=== PATIENT | male | born 1990 | race Caucasian/White ===

== ENCOUNTER 2020-10-17 14:33 | Outpatient (CLI) | payer OTHER ==
--- NOTE | 2020-10-17 16:28 | MRI Report ---
PROCEDURE: Knee LT W/O INDICATIONS: KNEE INSTABILITY TECHNIQUE: Noncontrast sagittal PD fast spin echo and T2 fast spin echo with fat saturation, sagittal 3-D gradie nt sequence with fat saturation; coronal T1 spin echo and PD fast spin echo with fat saturation, and axial PD fast spin echo with fat saturation through the knee. COMPARISON: None. FINDINGS: Image quality: Excellent. Menisci: The medial and lateral menisci demonstrate normal morphology and internal signal. The meni scal root ligaments appear intact. Cruciate ligaments: The anterior and posterior cruciate ligaments appear intact. Medial structures: The medial collateral ligament appears intact. Visualized portions of the pes ans erinus tendons appear normal. No abnormal bursal fluid. Lateral structures: The lateral collateral ligament, long and short heads of the biceps femoris tend on appear intact. The popliteus tendon appears normal. Iliotibial band appears normal. Anterior structures: The quadriceps and patellar tendons appear intact. Patellar alignment is tommy l. No femoral trochlear dysplasia or ventral trochlear prominence. No edema in the infrapatellar fa t pad. Bones and cartilage: No bone marrow contusions or fractures. The cartilage of the medial and latera l femorotibial compartments, as well as the patellofemoral compartment, appears normal in thickness. Joint space: There is physiologic knee joint fluid. No Winter?s cyst. Normal appearing synovial pli are incidentally noted. IMPRESSION: 1. No internal derangement. 2. No explanation for instability. Reviewed by: Emiliano Lua MD on 10/17/2020 4:27 PM PDT Approved by: Emiliano Lua MD on 10/17/2020 4:27 PM PDT Station ID: [id number]
== END 2020-10-17 14:34 | disposition home or self-care (01) ==
LOC: DI 14:33
PROVIDERS: ATTEND Nurse Practitioner Family
DX: M25.362 Other instability, left knee (principal)

== ENCOUNTER 2021-01-11 08:00 | Outpatient (CLI) | payer OTHER | END 2021-01-11 23:59 | disposition home or self-care (01) | LOC: LAB.N 08:00 | PROVIDERS: ATTEND Nurse Practitioner | DX: R05.9 Cough, unspecified (principal); Z20.822 Contact with and (suspected) exposure to COVID-19 ==

== ENCOUNTER 2021-01-17 09:21 | Outpatient (CLI) | payer OTHER ==
--- NOTE | 2021-01-17 10:20 | XRAY Report ---
PROCEDURE: Knee 4 View RT INDICATIONS: RIGHT KNEE PAIN TECHNIQUE: 3 views of the right knee(s) were acquired. AP weightbearing view of both knees was also submitted. COMPARISON: None. FINDINGS: BONES/JOINT: No acute, displaced fracture or dislocation. Trace suprapatellar joint effusion. The abbey nt spaces are maintained. SOFT TISSUES: No significant abnormality. IMPRESSION: 1.No acute osseous abnormality. Reviewed by: Freddie Olguin MD on 01/17/2021 10:19 AM PDT Approved by: Freddie Olguin MD on 01/17/2021 10:19 AM PDT Station ID: [id number]
== END 2021-01-17 09:22 ==
LOC: DI.N 09:21
PROVIDERS: ATTEND Physician Assistant
DX: M25.561 Pain in right knee (principal)

== ENCOUNTER 2021-02-20 19:42 | Emergency (ER) | payer OTHER ==
[2021-02-20] MEDS ORDERED: KETOROLAC 60 MG/2 ML VIAL IM STA (20:07)
[2021-02-20] MEDS ORDERED: HYDROcod/ACET 5/325 Prepack 4 PO STA (20:07)
[2021-02-20] MEDS ORDERED: HYDROmorphone 1 MG/ML CARPUJECT IM STA (20:07)
--- NOTE | 2021-02-20 20:09 | ED Physician Documentation ---
PD HPI BACK PAIN - Stated complaint Stated Complaint: TAIL BONE PX - Chief complaint Chief Complaint: Back Pain - History obtained from History obtained from: Patient - Additional information Additional information: 30-year-old gentleman with history of knee problems and allergies but generally healthy was playing with his son earlier today. He was down on the floor on all fours and got up and suddenly felt a severe low back pain. It is in the area of the lower lumbar spine/upper sacrum. It otherwise radiates a bit to the side but no further. No radiation down the legs. No weakness, numbness, tingling, saddle anesthesia, fevers, history of back problems, IV drug use. Review of Systems Constitutional: reports: Reviewed and negative Eyes: reports: Reviewed and negative Ears: reports: Reviewed and negative Respiratory: reports: Reviewed and negative PD PAST MEDICAL HISTORY - Past Medical History Past Medical History: Yes Other Past Medical History: Seasonal Allergies - Past Surgical History Past Surgical History: No - Present Medications Home Medications: Ambulatory Orders Medication Instructions Recorded Confirmed Cyclobenzaprine [Flexeril] 10 mg PO TID PRN #20 tablet 02/20/21 Fluticasone [Flonase] 1 ESTEFANÍA DAILY 02/20/21 Ibuprofen [Motrin] 800 mg PO Q8H PRN #30 tablet 02/20/21 Lidocaine Patch 5% [Lidoderm Patch] 1 applic TOP DAILY 02/20/21 02/20/21 - Allergies Allergies/Adverse Reactions: Allergies Allergy/AdvReac Type Severity Reaction Status Date / Time No Known Drug Allergies Allergy Verified 02/20/21 19:44 - Social History Does the pt smoke?: No Smoking Status: Never smoker - Immunizations Immunizations are current?: Yes - POLST Patient has POLST: No PD ED PE NORMAL - Vitals Vital signs reviewed: Yes - General General: Alert and oriented X 3, No acute distress (He is comfortable at rest but winces quite a bit with motion.) - Back Back: No spinal TTP, Other (The patient has equal and normal Achilles and patellar reflexes bilaterally. Normal sensation in all areas of the legs. Patient denies saddle anesthesia. Normal strength in flexion-extension at the ankles, knees, and flexion of the hips.) - Neuro Neuro: Alert and oriented X 3, Normal speech Results - Vitals Vitals: Vital Signs - 24 hr 02/20/21 19:44 Temperature 36.5 C Heart Rate 75 Respiratory 16 Rate Blood Pressure 143/88 H O2 Saturation 99 Oxygen O2 Source Room air PD MEDICAL DECISION MAKING - ED course ED course: This patient has seemingly uncomplicated musculoskeletal back pain. The patient has no "red flags." Specifically denies IV drug use, fevers, incontinence, saddle anesthesia. Spinal epidural abscess was considered, given that the patient has no fever, is not diabetic, has no spinal tenderness, does not use IV drugs, and has no bilateral neurologic symptoms, the diagnosis of spinal epidural abscess is considered exceedingly unlikely. I am prescribing a short course of short-acting opioid pain medication for this patient. I have reviewed the patients [employer] and no concerning findings were noted. I have discussed that the opioids are for short term therapy only, and will not be refilled from the ED. Departure - Departure Disposition: 01 Home, Self Care Clinical Impression: Back pain Qualifiers: Back pain location: low back pain Chronicity: acute Back pain laterality: bilateral Sciatica presence: without sciatica Qualified Code(s): M54.50 - Low back pain, unspecified Condition: Good Record reviewed to determine appropriate education?: Yes Instructions: ED Low Back Pain Injury Prescriptions: Cyclobenzaprine [Flexeril] 10 mg PO TID PRN #20 tablet PRN Reason: Spasms Ibuprofen [Motrin] 800 mg PO Q8H PRN #30 tablet PRN Reason: PAIN &/OR FEVER Comments: [place] and consideration of physical therapy referral. Return for new or worsening symptoms. Forms: Activity restrictions
[2021-02-20 20:48] VITALS: BP 126/61
== END 2021-02-20 20:49 | disposition home or self-care (01) ==
LOC: ED 19:42
DX: M54.50 Low back pain, unspecified (principal)
CPT/HCPCS: 96372; 99283; J1170

== ENCOUNTER 2022-01-10 08:13 | Outpatient (CLI) | payer OTHER ==
[2022-01-10 08:51] VITALS: BP 110/68
--- NOTE | 2022-01-10 08:51 | SLEEP CARE CONSULTATION ---
Information from patient questionnaire entered by Jeannette Katz. I have reviewed and concur with the information entered by Jeannette Katz. This document represents the service I personally performed and the decisions made by , Maria E Henriquez ARNP. History of Present Illness Service Date and Time: 01/10/2022 08 Initial [place] Sleepiness Scale score: 15 (11/09/2021) Current [place] Sleepiness Scale score: 14 (01/10/22) Additional HPI information: BRONSON SR returns for follow up and results of the recently performed polysomnography. The patient was informed of the following findings: No significant sleep disordered breathing with an average AHI of 2.1 and keith oxygen saturation of 90%. I explained the pathophysiology behind obstructive sleep apnea. Patient does not have sleep apnea and was advised how weight gain could increase the risk of developing sleep apnea in the future. I strongly encouraged the patient to lose weight. Patient has moderate snoring. Snoring can be reduced by weight loss. Weight loss is best achieved with diet consult. Patient instructed to contact PCP for referral. Snoring can also be treated with an oral appliance from a dentist. Advised to check insurance coverage. In addition, an ENT evaluation can be do to see if other treatment is indicated. Patient does not drink alcohol. Patient was cautioned about risks of drowsy driving until sleepiness symptoms resolve. Patient denies drowsy driving. Sleep Study - Results Type of Sleep Study: Polysomnography (DONE 11/23/21) Prior sleep studies: No Polysomnography/Home Sleep Study results: IMPRESSION: The quality of the study is good. The patient had normal sleep efficiency. The sleep architecture was normal as well. Respiratory monitoring showed no significant sleep disordered breathing (AHI = 2.1) or hypoxia (keith oxygen saturation of 90%). The few respiratory events occurred mainly during REM sleep (supine AHI = 3.2; non-supine = 1.23). Snore was moderate in intensity. There was no significant periodic leg movement of sleep. Cardiac rhythm was normal sinus rhythm without significant arrhythmia. No abnormal behavior (parasomnia) observed during the night. Allergies and Home Medications Drug allergies reviewed: Yes (NKDA) Home medication list reviewed: Yes (cetrizine) Allergy and home medication list: Allergies No Known Drug Allergies Allergy (Verified 10/01/21 12:52) Review of Systems Review of systems same as previous: Yes (no changes) Physical Exam Vital signs obtained and entered by: STEFFI TINSLEY Blood Pressure: 110/68 (LEFT ARM ) Cuff size: regular Heart Rate: 83 O2 Saturation: 95 Height: 5 ft 11 in Weight: 220 lb Body Mass Index: 30.7 BMI Classification: Obese Impression and Plan Snoring but no significant sleep disordered breathing. Patient advised that often weight loss will reduce snoring as well as apnea risk. An oral appliance can also be used for snoring. This would require a dental consultation. Patient cautioned not to use other online appliances as can cause bite issues. A list of accredited dentists in [facility] and one local dentist who makes oral appliances is available in the office. Patient is advised to check if insurance will cover. An ENT consult can also be helpful to determine if any other treatment is an option. * Attempt to lose weight * Return as needed for follow up. Counseling Topics: Weight loss health impact Visit Type: In Office Time Spent with Patient (minutes): 11 Provider Statement: I spent 100% of the Face to Face Visit with the patient with greater than 50% spent counseling the patient and coordination of care.
== END 2022-01-10 08:14 | disposition home or self-care (01) ==
LOC: SC 08:13
PROVIDERS: ATTEND Nurse Practitioner Family
DX: R06.83 Snoring (principal); E66.9 Obesity, unspecified; Z68.30 Body mass index [BMI] 30.0-30.9, adult
CPT/HCPCS: 99212